=== PATIENT | female | born 1970 | race African-American/Black ===

== ENCOUNTER 2019-04-17 16:23 | Emergency (ER) | payer MEDICAID, SELFPAY ==
[2019-04-17 16:23] VITALS: BP 112/85; PULSE 121; RESP 18; TEMP 37.4; O2SAT 96; BMI 36.0
[2019-04-17 16:29] VITALS: O2SAT 98
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
--- NOTE | 2019-04-17 17:20 | RAD_ITS ---
STUDY: X-RAY CHEST REASON FOR EXAM: Female, 49 years old. Chest pain TECHNIQUE: PA and lateral views of the chest COMPARISON: None. FINDINGS: The lungs are clear. There are no pleural effusions. There is no pneumothorax. The heart is normal in size. The visualized osseous structures are within normal limits. RAD/Chest PA and Lateral IMPRESSION: No acute thoracic pathology. Electronically Signed: Jm Handley, at 17:39 EDT Tel , Service support ,
[2019-04-17 17:57] LABS: Hematocrit 38.2 % (37-47); Hemoglobin 12.5 g/dl (12.0-15.0); Mean Corp Hgb Conc 32.7 g/gl (32-36); Mean Corpuscular Hgb 26.5 pg (27.0-32.0); Mean Corpuscular Volume 81.1 fL (81-99); Mean Platelet Vol. 9.1 fl (6.2-12.0); Platelet Count 364 K/mm3 (150-450); RBC Distribution Width CV 13.4 % (11.6-14.6); RBC Distribution Width SD 38.8 fl (35.1-43.9); Red Blood Count 4.71 M/mm3 (4.2-5.4); White Blood Count 14.2 K/mm3 (4.4-11.0)
[2019-04-17 18:01] LABS: Scan Indicated on CBC? Y/N NO
[2019-04-17 18:04] LABS: Anion Gap 4 (5-15); BUN 12 mg/dL (7-18); BUN/Creat Ratio 13.5 RATIO (10-20); Calcium,Total 9.1 mg/dL (8.5-10.1); Chloride 102 mmol/L (98-107); Creatinine, Serum 0.89 mg/dL (0.55-1.02); EST Glomerular Filtration Rate 72 mL/min (>60); Est Glom Filt Rate - Afr Amer 87 mL/min (>60); Estimated Creatinine Clearance 61.14 ml/min; Glucose 103 mg/dL (74-106); Potassium 3.6 mmol/L (3.5-5.1); Sodium Level 135 mmol/L (136-145)
[2019-04-17 18:23] VITALS: BP 132/82; PULSE 113; RESP 20; O2SAT 97
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
--- NOTE | 2019-04-17 19:34 | ED.RN ---
NEGRO FROM [facility] SPOKE WITH PATIENT.
[2019-04-17 20:53] VITALS: BP 139/77; PULSE 107; RESP 18; O2SAT 99
--- NOTE | 2019-04-17 20:55 | ED.RN ---
PT states she called her son to come pick her up. pt assisted in getting cleaned up and given paper scrubs per request. Pt given snack and is in waiting room waiting for ride to get here.
== END 2019-04-17 20:59 | disposition home or self-care (01) ==
PROVIDERS: Emergency Provider Emergency Medicine
DX: S00.01XA Abrasion of scalp, initial encounter (principal); S39.91XA Unspecified injury of abdomen, initial encounter; V59.88XA Occupant (driver) (passenger) of pick-up truck or van injured in other specified transport accidents, initial encounter; Y93.89 Activity, other specified; Y92.9 Unspecified place or not applicable; I10 Essential (primary) hypertension
CPT/HCPCS: 70450; 71046; 72125; 74177; 80048; 85027; 99285; Q9967; A4216